=== PATIENT | female | born 1985 | race Caucasian/White ===

== ENCOUNTER → 2021-11-10 09:00 | Outpatient (BNVA) | payer OTHER, SELFPAY | PROVIDERS: Family Provider Electrodiagnostic Medicine; PCP Electrodiagnostic Medicine; Visit Provider Nurse Practitioner Women's Health | DX: Z01.419 Encounter for gynecological examination (general) (routine) without abnormal findings (principal) | CPT/HCPCS: 87624 ==

== ENCOUNTER → 2023-09-26 15:40 | Outpatient (BNVA) | payer OTHER, SELFPAY | PROVIDERS: PCP Electrodiagnostic Medicine; Visit Provider Podiatrist Foot & Ankle Surgery | DX: M79.675 Pain in left toe(s); L60.3 Nail dystrophy; M65.9 Synovitis and tenosynovitis, unspecified | CPT/HCPCS: 73630 ==